=== PATIENT | female | born 1975 | race Caucasian/White ===

== ENCOUNTER 2018-03-07 08:11 | Day surgery (SDC) | payer BC ==
[2018-03-07 09:03] LABS: ADD MAN DIFF? NO
[2018-03-07 09:06] LABS: BASOPHILS % 0.5 % (0.0-2.0); EOSINOPHILS # 0.2 10^3/ul (0.0-0.5); EOSINOPHILS % 3.6 % (0.0-7.0); HEMATOCRIT 34.4 % (37.0-47.0); HEMOGLOBIN 11.5 g/dl (12.0-16.0); LYMPHOCYTES # 1.2 10^3/ul (0.8-2.9); LYMPHOCYTES % 21.5 % (15.0-51.0); MEAN CORPUSCULAR HEMOGLOBIN 29.3 pg (29.0-33.0); MEAN CORPUSCULAR HGB CONC 33.4 g/dl (32.0-37.0); MEAN CORPUSCULAR VOLUME 87.8 fl (82.0-101.0); MEAN PLATELET VOLUME 11.4 fl (7.4-10.4); MONOCYTE # 0.4 10^3/ul (0.3-0.9); MONOCYTES % 6.2 % (0.0-11.0); NEUTROPHIL # 3.9 10^3/ul (1.6-7.5); PLATELET COUNT 226 10^3/UL (140-415); RED BLOOD COUNT 3.92 10^6/ul (4.20-5.40); RED CELL DISTRIBUTION WIDTH 12.9 % (11.5-14.5)
[2018-03-07 09:06] LABS: WHITE BLOOD COUNT 5.8 10^3/ul (4.8-10.8)
[2018-03-07] MEDS ORDERED: MIDAZOLAM 1 MG/ML 2 ML INJ (09:49)
[2018-03-07] MEDS ORDERED: LIDOCAINE 2% (SDV) 5 ML INJ (09:49)
[2018-03-07] MEDS ORDERED: PROPOFOL 20 ML (09:49)
[2018-03-07] MEDS ORDERED: PROVENTIL HFA 6.7GM INHALER (09:51)
[2018-03-07] MEDS ORDERED: ONDANSETRON 4 MG INJ (10:04)
[2018-03-07] MEDS ORDERED: DEXAMETHASONE 4 MG/ML 1 ML INJ (10:04)
[2018-03-07] MEDS ORDERED: PHENYLephrine (100 MCG/ML) 5ML SYG (10:07)
[2018-03-07] MEDS: HYDROmorphONE (0.2 MG/ML) 10ML SYG IV ×2 (10:54→11:09)
[2018-03-07] MEDS ORDERED: morphine 4 MG/ML VIAL IV (11:50)
[2018-03-07] MEDS: HYDROCODONE/APAP (5/325) TAB PO (12:00)
[2018-03-07] MEDS ORDERED: HYDROCODONE/APAP (7.5/325) TAB PO (12:00)
[2018-03-07] MEDS: ONDANSETRON 4 MG INJ IV (12:00)
== END 2018-03-07 12:36 | disposition home or self-care (01) ==
LOC: SDS 08:11
DX: N93.8 Other specified abnormal uterine and vaginal bleeding (principal); J45.909 Unspecified asthma, uncomplicated
CPT/HCPCS: 58120; 85025; 88305